=== PATIENT | male | born 2000 | race Caucasian/White ===

== ENCOUNTER → 2022-07-17 09:12 | Outpatient (CLI) | payer OTHER, SELFPAY ==
--- NOTE | 2022-07-17 | DI.MRI.S_ITS ---
PROCEDURE: MR ANKLE RT WO CON INDICATIONS: Unspecified injury of right ankle, initial encounter TECHNIQUE: Noncontrast sagittal T1 spin echo and T2 fast spin echo with fat saturation, axial proton density fast spin echo and T2 fast spin echo with fat saturation, coronal T1 spin echo and T2 fast spin echo with fat saturation through the ankle/hindfoot. COMPARISON: None. FINDINGS: Image quality: Excellent. Bones and joints: There is marrow edema involving medial malleolus and adjacent medial periphery of talus without discrete fracture line suggestive of bony contusion. Similar marrow edema involving posterior lateral corner of talus extending to talar dome is also seen without discrete fracture line. No hindfoot coalitions. Small to moderate amount of tibiotalar and subtalar joint effusion is seen, no gross loose bodies. Medial structures: The posterior tibialis, flexor digitorum longus, and flexor hallucis longus tendons are intact. Small amount of fluid distending tendon sheath is seen which may represent low-grade tenosynovitis at the level of talonavicular joint. The posterior tibial neurovascular bundle appears normal within the tarsal tunnel, without extrinsic mass effect. The deep layer (anterior and posterior tibiotalar ligaments) and superficial layer (tibionavicular, tibiospring, and tibiocalcaneal ligaments) of the deltoid ligament appear normal. The spring ligament components (superomedial calcaneonavicular, medioplantar oblique calcaneonavicular, and inferoplantar longitudinal ligaments) are intact. Lateral structures: The anterior talofibular, calcaneofibular, and posterior talofibular ligaments appear attenuated with intrasubstance T2 hyperintense signal. More superiorly, the anterior and posterior tibiofibular ligaments appear intact, as is the intermalleolar ligament. The tibiofibular syndesmosis is normal in width at 2 mm or less. The peroneus longus and brevis tendons demonstrate normal location and morphology. Adjacent bony peroneal tubercle and retrotrochlear prominence are normal in size. The sinus tarsi demonstrates normal fatty signal, without edema, fibrosis, or cyst formation. Visualized sinus tarsi components (cervical ligament, interosseous talocalcaneal ligament, roots of the inferior extensor retinaculum) appear normal. The calcaneonavicular and calcaneocuboid components of the bifurcate ligament appear intact. The dorsal calcaneocuboid ligament appears intact. Anterior structures: The tibialis anterior, extensor hallucis longus, and extensor digitorum longus tendons appear intact. The dorsal talonavicular ligament appears intact. Posterior and plantar structures: Achilles tendon is intact. Medial and lateral bands of the plantar fascia are of normal thickness. No abductor digiti quinti muscle atrophy to suggest Russell neuropathy. IMPRESSION: 1. Bony contusion involving medial malleolus and adjacent medial periphery talus. Marrow edema also noted involving posterior lateral corner of talar dome which could represent bony contusion versus small osteochondral injury in this area. Small to moderate joint effusion, no gross loose bodies. 2. Suggestion of very low-grade tenosynovitis involving flexor tendons at the level of talonavicular joint. Rest of the ankle tendons are intact. 3. Moderate grade intrasubstance partial-thickness tear involving anterior and posterior talofibular ligaments and calcaneofibular ligament. Medial ankle ligaments are intact. Dictated by: Jigar Wilson M.D. on 07/17/2022 at 11:30 Approved by: Jigar Wilson M.D. on 07/17/2022 at 16:14
== END ==
PROVIDERS: Referring Provider Internal Medicine; Visit Provider Internal Medicine
DX: S80.11XA Contusion of right lower leg, initial encounter (principal); S93.431A Sprain of tibiofibular ligament of right ankle, initial encounter
CPT/HCPCS: 73721

== ENCOUNTER → 2023-12-08 10:55 | Outpatient (CLI) | payer OTHER, SELFPAY ==
--- NOTE | 2023-12-08 10:59 | DI.RAD.S_ITS ---
PROCEDURE: XR RIBS LT 2V INDICATIONS: left clavicle and rib fracture TECHNIQUE: 2 views of the ribs were acquired. COMPARISON: None. FINDINGS: Surgical changes and devices: None. Bones and chest wall: Old healed 6th rib fractures noted. No suspicious bony lesions. Overlying soft tissues appear unremarkable. Lungs and pleura: The visualized lung appears clear. No pleural effusions or pneumothorax are visible. IMPRESSION: Old healed 6th rib fracture. Dictated by: Juan Jose Su M.D. on 12/09/2023 at 7:50 Approved by: Juan Jose Su M.D. on 12/09/2023 at 7:53
--- NOTE | 2023-12-08 10:59 | DI.RAD.S_ITS ---
PROCEDURE: XR CLAVICLE LT INDICATIONS: left clavicle and rib fracture TECHNIQUE: 2 views of the clavicle were acquired. COMPARISON: None. FINDINGS: Bones: Postsurgical changes for ORIF of clavicular shaft fracture with a surgical plate and multiple surgical screws. The alignment is normal. No suspicious bony lesions. Soft tissues: No suspicious soft tissue calcifications. IMPRESSION: ORIF of clavicular shaft fracture. Dictated by: Juan Jose Su M.D. on 12/09/2023 at 7:49 Approved by: Juan Jose Su M.D. on 12/09/2023 at 7:49
[2023-12-08 16:21] LABS: Vitamin D 25 Hydroxy (D3) 25.3 ng/mL (30.0-100.0)
== END ==
LOC: LAB 10:57
PROVIDERS: PCP General Practice; Referring Provider Chiropractor; Visit Provider Chiropractor
DX: S42.002A Fracture of unspecified part of left clavicle, initial encounter for closed fracture (principal); S22.42XA Multiple fractures of ribs, left side, initial encounter for closed fracture; E55.9 Vitamin D deficiency, unspecified
CPT/HCPCS: 36415; 71100; 73000; 82306